=== PATIENT | male | born 1965 | race Two or more races ===

== ENCOUNTER 2018-11-10 11:46 | Outpatient (CLI) | payer OTHER | END 2018-11-10 11:52 | disposition home or self-care (01) | LOC: SONOGRAMA 11:46 | DX: M25.519 Pain in unspecified shoulder (principal) ==

== ENCOUNTER 2023-06-23 17:22 | Emergency (ER) | payer OTHER ==
[~2023-06-23] VITALS: Ht 177.8 cm; Wt 83.9 kg
[2023-06-23] MEDS ORDERED: ONDANSETRON HCL 2 MG/ML VIAL IV ONE (18:15)
[2023-06-23] MEDS ORDERED: FAMOtidine 10 MG/ML (4ML VIAL) IV PUSH ONE (18:15)
[2023-06-23] MEDS ORDERED: KETOROLAC TROMETHAMINE 30 MG VIAL IV ONE (18:15)
[2023-06-23] MEDS ORDERED: HYOSCYAMINE SULFATE 0.125 MG TAB.SUBL SL ONE (18:15)
[2023-06-23 18:52] LABS: PH,URINE 6.5 (5.0-8.0); URINE APPEARANCE Clear; URINE BILIRRUBIN Negative (NEGATIVE); URINE BLOOD Trace; URINE COLOR Yellow; URINE GLUCOSE Negative (NEGATIVE); URINE LEUKOCYTE Negative; URINE NITRATE Negative; URINE PROTEIN Negative (NEGATIVE); URINE UROBILINOGEN 0.2 E.U./dl
[2023-06-23 18:52] LABS: HEMATOCRIT 40.4 % (39.0-48.0); MEAN CELL VOLUME 92.1 fL (80.0-100.00); MEAN CORPUSCULAR HEMOGLOBIN 31.9 pg (27.00-32.0); MEAN CORPUSCULAR HGB CONC 34.6 g/dl (32.0-36.0); PLATELET COUNT 229 K/uL (150-450); RED BLOOD COUNT 4.38 M/uL (4.00-6.00); RED CELL DISTRIBUTION WIDTH 13.1 % (11.5-14.5)
[2023-06-23 18:53] LABS: URINE BACTERIA 12.5 uL (0.0-1933); URINE RBC 11.1 uL (0.0-20.8)
[2023-06-23 19:18] LABS: ALBUMIN 3.4 gm/dL (3.4-5.0); BILIRUBIN TOTAL 0.35 mg/dL (0.3-1.2); CALCIUM 9.1 mg/dL (8.5-10.1); CREATININE SERUM 1.11 mg/dL (0.70-1.30); GFR 68.28; GLOBULINA 4.4 G/DL (2.4-3.5); POTASSIUM 3.76 mEq/L (3.5-5.1); TOTAL PROTEIN 7.8 gm/dL (6.4-8.2)
[2023-06-23 19:18] LABS: URINE EPITHELIAL CELLS 0.6 uL (0.0-38.8)
[2023-06-23] MEDS ORDERED: METRONIDAZOLE/SODIUM CHLORIDE 500 MG/100 ML PIGGYBACK IV ONE (21:45)
[2023-06-23] MEDS ORDERED: CIPROFLOXACIN IN 5 % DEXTROSE 400 MG/200 ML PIGGYBAG IV ONE (21:45)
== END 2023-06-23 23:35 | disposition home or self-care (01) ==
LOC: ER 17:22
PROVIDERS: General Practice
DX: K52.89 Other specified noninfective gastroenteritis and colitis (principal); R10.31 Right lower quadrant pain